=== PATIENT | female | born 2000 | race Asian ===

== ENCOUNTER 2025-02-04 15:14 | Outpatient (CLI) | payer OTHER, SELFPAY ==
--- NOTE | ~2025-02-04 | US_ITS ---
EXAMINATION: US OB /maternal detail DATE: 02/08/2025 0:06 CDT INDICATION: Anatomy scan TECHNIQUE: Real-time transabdominal obstetric ultrasound. FINDINGS: There is a single intrauterine gestation in breech presentation. The placenta is anterior. The tip of the placenta measures approximately 4.8 cm from the internal cervical os. The cervix measures 3.9cm in length. cardiac activity and movement is noted with a heart rate of 147 beats per minute. Anatomic parameters are as follows The bladder is visualized and is unremarkable. A three-vessel cord is present. Cord insertion is on the midline on the submitted images. Bilateral kidneys are present without hydronephrosis. The anterior and posterior margin of the diaphragm is continuous. The cervical, thoracic and lumbar spines are covered in their entirety. choroid plexi are visualized, and unremarkable. Lateral ventricles are visualized measuring 5.2 and 5.3 mm, respectively. The falx is visualized. The cerebellum is visualized measuring 20.6 mm, and is sonographically unremarkable. The cisterna magna measures 4.6 mm in anterior to posterior dimension (normal measurement is 2 to 10 mm). The nuchal fold measures 3.6 mm (greater than 6 mm is considered abnormal). Cine of the four-chamber heart is visualized and is anatomic. Both the right and left ventricular outflow tracts are identified on cine view and are unremarkable. Evaluation of the arms, hands, legs and feet were performed and appear grossly unremarkable. Evaluation of the upper lip and nose to confirm their continuity is appreciated on the submitted imag es. The following biometric data were obtained: Biparietal diameter (BPD): 5 cm; head circumference (HC): 18.7 cm; abdominal circumference (AC): 16.7 cm; femur length (FL): 3.4 cm. These measurements are concordant. Estimated weight is 404 g +/- 61 g, which correlates with the 62nd percentile when 06/16/2025 i s used as estimated date of delivery. As single measurements, these parameters are each equal to the following estimated gestational ages: BPD: 21 weeks 1 day. HC: 21 weeks 0 days. AC: 21 weeks 5 days. FL: 20 weeks days. estimated gestational age based solely on measurements from this exam is 21 weeks 1 day +/- 1 w [place] 3 days. IMPRESSION: Single intrauterine gestation with an approximate gestational age of 21 weeks and 1 day. Estimated du e date by ultrasound is 06/16/2025. Anatomy scan was completed in its entirety, and is unremarkable and anatomic. Reviewed, dictated and finalized at location A. IMPRESSION: Single intrauterine gestation with an approximate gestational age of 21 weeks a nd 1 day. Estimated due date by ultrasound is 06/16/2025. Anatomy scan was completed in its entirety, and is unremarkable and anatomic.
== END 2025-02-04 15:15 | disposition home or self-care (01) ==
PROVIDERS: PCP Family Medicine; Visit Provider Family Medicine
DX: Z34.02 Encounter for supervision of normal first pregnancy, second trimester (principal); Z3A.21 21 weeks gestation of pregnancy
CPT/HCPCS: 76805

== ENCOUNTER 2025-04-04 16:01 | Outpatient (CLI) | payer OTHER, SELFPAY ==
--- NOTE | ~2025-04-04 | US_ITS ---
EXAMINATION: US OB follow up DATE: 04/04/2025 16:27 INDICATION: Assess growth during third trimester TECHNIQUE: Real-time ultrasound of the pelvis was performed. The interpreting radiologist was not present for the study. COMPARISON: 02/04/2025 FINDINGS: There is a single living fetus in vertex presentation. The placenta is anterior and not low-lying. heart rate is 141 beats per minute (bpm). The amniotic fluid index is 16.9 cm, which is normal (5th%-95%: 9.2-23.1 cm at 29 weeks estimated gestational age). The following biometric data were obtained: BPD: 7.7 cm -> 30 weeks 5 days Head circumference: 28.1 cm -> 30 weeks 6 days Abdominal circumference: 26.8 cm -> 30 weeks 6 days Femur length: 5.7 cm -> 30 weeks 0 days These measurements are concordant. Head circumference to abdominal circumference ratio: 1.05 (normal range 0.97-1.18). Estimated weight: 1605 g (+/-) 241 g or 3 lbs. 9 oz. (+/-) 8 oz. IMPRESSION: 1. Single living fetus in vertex presentation with heart rate of 141 bpm. 2. Normal amniotic fluid index of 16.9 cm 3. Estimated weight is 83rd percentile by Hadlock criteria when 06/18/2025 is used as the estimated date of delivery (YOAN). Please correlate with clinical information or earlier ultrasounds for most accurate YOAN. Reviewed, dictated and finalized at location A. IMPRESSION: 1. Single living fetus in vertex presentation with heart rate of 141 bpm. 2. Normal amniotic fluid index of 16.9 cm 3. Estimated weight is 83rd percentile by Hadlock criteria when 5 is used as the estimated date of delivery (YOAN). Please correlate with clinic al information or earlier ultrasounds for most accurate YOAN.
== END 2025-04-04 16:02 | disposition home or self-care (01) ==
LOC: GOSHIMG 16:02
PROVIDERS: PCP Family Medicine; Visit Provider Family Medicine
DX: Z34.93 Encounter for supervision of normal pregnancy, unspecified, third trimester (principal); Z3A.00 Weeks of gestation of pregnancy not specified
CPT/HCPCS: 76816

== ENCOUNTER 2025-05-30 08:58 | Outpatient (CLI) | payer OTHER, SELFPAY ==
--- NOTE | ~2025-05-30 | US_ITS ---
EXAMINATION: US OB follow up DATE: 05/30/2025 09:28 INDICATION: Encounter for supervision of normal TECHNIQUE: Real-time transabdominal obstetric ultrasound. FINDINGS: Comparison to multiple prior studies sequentially, with oldest reviewed study dated 02/04/2025. There is a single living fetus in vertex presentation. The placenta is anterior without placenta previa. cardiac activity and movement is noted with a heart rate of 147 beats per minute. The amniotic fluid volume is normal. ARI is normal measuring 15.1 cm. The following biometric data were obtained: BPD: 92mm corresponds to gestational age 37 weeks 4 days. Head circumference: 327mm corresponds to gestational age 37 weeks 0 days. Abdominal circumference: 330mm corresponds to gestational age 37 weeks 0 days. Femur length: 72mm corresponds to gestational age 37 weeks 6 days. Estimated weight: 3096grams +/- 464grams, 50.8%. IMPRESSION: 1. Single living intrauterine in vertex presentation with an estimated gestational age of 37 weeks 4 days by inititial ultrasound. Appropriate interval growth. 2. Normal placenta. Reviewed, dictated and finalized at location I. [employer] IMPRESSION: 1. Single living intrauterine in vertex presentation with an estimat ed gestational age of 37 weeks 4 days by inititial ultrasound. Appropriate int erval growth. 2. Normal placenta.
== END 2025-05-30 08:59 | disposition home or self-care (01) ==
PROVIDERS: PCP Family Medicine; Visit Provider Family Medicine
DX: Z34.93 Encounter for supervision of normal pregnancy, unspecified, third trimester (principal); Z3A.00 Weeks of gestation of pregnancy not specified
CPT/HCPCS: 76816